=== PATIENT | male | born 1940 | race Caucasian/White ===

== ENCOUNTER 2020-02-11 09:53 | Emergency (ER) | payer MEDICARE ==
[2020-02-11] MEDS ORDERED: Sodium Chloride 0.9% 10 ML Syringe FLUSH PRN (10:04)
--- NOTE | 2020-02-11 10:27 | CT ---
[id number] CT/CT Head Stroke Protocol EXAM: CT Head Stroke Protocol CLINICAL DATA: STROKE CODE. COMPARISON STUDY: None FINDINGS: No intracranial hemorrhage, extra-axial fluid collection, mass, or acute ischemia. Area of encephalomalacia within the left temporal lobe consistent with old infarct. 4 Generalized parenchymal atrophy with scattered areas of nonspecific white matter disease, commonly seen as sequela of chronic microvascular ischemia. Soft tissues are unremarkable. Paranasal sinuses and mastoid air cells are clear. IMPRESSION: No acute intracranial findings. Shar Leong DO 02/11/20 1026 Thank you for allowing us to participate in the care of your patient.
--- NOTE | 2020-02-11 10:38 | EDM.PDOC ---
ED HPI GENERAL MEDICAL PROBLEM - General Stated Complaint: ER Time Seen by Provider: 02/11/20 09:55 Source of Information: Reports: Patient History Limitations: Reports: No Limitations - History of Present Illness INITIAL COMMENTS - FREE TEXT/NARRATIVE: Patient comes emergency department today with concerns of possibly having a stroke. Since Saturday this week the patient has had a difficulty r emembering things. Today he was getting ready to go to a and when he was talking with his friends he was having a very hard time even remembering where he was from or where he lives. His friends were concerned about him having a stroke so they told him to come to the emergency department. He did have a stroke about 8 years ago where he has no real residual neurological deficits. He is here without any complaints other than the difficulty with finding words for specific questions. He has had no head injury falls or trauma. He has no headache fever or chills. No visual disturbances or visual acuity changes. No diplopia. No head neck or back pain. No chest pain no shortness of breath or difficulty breathing. No weakness dizziness lightheadedness. No paresthesias. No syncope. He denies any change in the functionality of his upper or lower extremities. He denies any change in the sensation to his upper or lower extremities. No abdominal pain nausea or vomiting. No hematuria dysuria or urinary frequency. No COVID exposure no covert symptoms. He is unsure of what medications he takes from the past he states that he takes 3 of them but he cannot recall what they are and he took them last this morning. He is unsure if he is on aspirin or Plavix. - Related Data Allergies Allergy/AdvReac Type Severity Reaction Status Date / Time No Known Allergies Allergy Verified 02/11/20 11:43 ED ROS GENERAL - Review of Systems Review Of Systems: Comprehensive ROS is negative, except as noted in HPI. ED EXAM, NEURO - Physical Exam Exam: See Below Exam Limited By: No Limitations General Appearance: Alert, WD/WN, No Apparent Distress Eye Exam: Bilateral Eye: EOMI, PERRL Ears: Normal External Exam, Hearing Grossly Normal, Normal TMs Nose: Normal Inspection, Normal Mucosa, No Blood Throat/Mouth: Normal Inspection, Normal Lips, Normal Teeth, Normal Gums, Normal Voice, No Airway Compromise Head Exam: Atraumatic, Normocephalic Neck: Normal Inspection, Supple, Non-Tender, Full Range of Motion Respiratory/Chest: No Respiratory Distress, Lungs Clear, Normal Breath Sounds, No Accessory Muscle Use, Chest Non-Tender Cardiovascular: Normal Peripheral Pulses, Regular Rate, Rhythm GI/Abdominal: Normal Bowel Sounds, Soft, Non-Tender (Male) Exam: Deferred Rectal (Males) Exam: Deferred Neurological: Alert, Normal Mood/Affect, Normal Dorsiflexion, Normal Plantar Flexion, Normal Gait, Normal Reflexes, No Motor/Sensory Deficits, Oriented x 3. No: CN II-XII Intact (All intact appropriately other than a very subtle right sided facial droop to the corner of the mouth. ) Back Exam: Normal Inspection, Full Range of Motion Extremities: Normal Inspection, Normal Range of Motion, Non-Tender, No Pedal Edema, Normal Capillary Refill Psychiatric: Normal Affect, Normal Mood Skin Exam: Warm, Dry, Intact, Normal Color, No Rash EKG INTERPRETATION EKG Date: 02/11/20 Time: 10:19 Rhythm: NSR Rate (Beats/Min): 56 [place]: Normal P-Wave: Present QRS: Normal ST-T: Normal QT: Normal Comparison: NA - No Prior EKG Course - Orders/Labs/Meds Orders: Active Orders 24 hr Category Date Time Status Peripheral IV Insertion Adult [OM.PC] Stat Oth 02/11/20 10:04 Ordered Labs: Laboratory Tests 02/11/20 02/11/20 02/11/20 Range/Units 10:12 10:21 10:21 WBC 5.0 (4.0-10.0) x10^3/uL RBC 4.37 L (4.5-6.0) x10^6/uL Hgb 14.3 (14.0-18.0) g/dL Hct 40.3 (40.0-52.0) % MCV 92.2 (78.0-93.0) fL MCH 32.7 H (26.0-32.0) pg MCHC 35.5 (32.0-36.0) g/dL RDW Coeff of Zen 12.8 (10.0-15.0) % Plt Count 132 (130-400) x10^3/uL Neut % (Auto) 56.1 (50.0-80.0) % Lymph % (Auto) 31.3 (25.0-50.0) % [place] % (Auto) 8.4 (2.0-11.0) % Eos % (Auto) 3.8 (0.0-4.0) % Baso % (Auto) 0.4 (0.2-1.2) % PT 10.9 (9.5-12.3) SEC INR 1.0 L (2.0-3.5) APTT 25.3 L (25.6-32.8) SEC Sodium (136-145) mmol/L Potassium (3.5-5.1) mmol/L Chloride (98-107) mmol/L Carbon Dioxide (21-32) mmol/L Anion Gap (10-20) mmol/L BUN (7-18) mg/dL Creatinine (0.70-1.30) mg/dL Est Cr Clr Drug Dosing Estimated GFR (MDRD) Glucose (74-106) mg/dL POC Glucose 121 H (74-106) mg/dL Calcium (8.5-10.1) mg/dL Corrected Calcium (8.5-10.1) mg/dL Total Bilirubin (0.2-1.0) mg/dL AST (15-37) U/L ALT (16-63) U/L Alkaline Phosphatase (46-116) U/L POC Troponin I (0.00-0.08) ng/mL Total Protein (6.4-8.2) g/dL Albumin (3.4-5.0) g/dL Globulin Albumin/Globulin Ratio Ethyl Alcohol (0-3) mg/dL 02/11/20 02/11/20 Range/Units 10:21 10:23 WBC (4.0-10.0) x10^3/uL RBC (4.5-6.0) x10^6/uL Hgb (14.0-18.0) g/dL Hct (40.0-52.0) % MCV (78.0-93.0) fL MCH (26.0-32.0) pg MCHC (32.0-36.0) g/dL RDW Coeff of Zen (10.0-15.0) % Plt Count (130-400) x10^3/uL Neut % (Auto) (50.0-80.0) % Lymph % (Auto) (25.0-50.0) % [place] % (Auto) (2.0-11.0) % Eos % (Auto) (0.0-4.0) % Baso % (Auto) (0.2-1.2) % PT (9.5-12.3) SEC INR (2.0-3.5) APTT (25.6-32.8) SEC Sodium 145 (136-145) mmol/L Potassium 3.8 (3.5-5.1) mmol/L Chloride 107 (98-107) mmol/L Carbon Dioxide 29 (21-32) mmol/L Anion Gap 12.8 (10-20) mmol/L BUN 13 (7-18) mg/dL Creatinine 0.8 (0.70-1.30) mg/dL Est Cr Clr Drug Dosing TNP Estimated GFR (MDRD) > 60 Glucose 110 H (74-106) mg/dL POC Glucose (74-106) mg/dL Calcium 8.7 (8.5-10.1) mg/dL Corrected Calcium 9.18 (8.5-10.1) mg/dL Total Bilirubin 1.2 H (0.2-1.0) mg/dL AST 22 (15-37) U/L ALT 34 (16-63) U/L Alkaline Phosphatase 57 (46-116) U/L POC Troponin I 0.00 (0.00-0.08) ng/mL Total Protein 6.4 (6.4-8.2) g/dL Albumin 3.4 (3.4-5.0) g/dL Globulin 3.0 Albumin/Globulin Ratio 1.13 Ethyl Alcohol < 3 (0-3) mg/dL Meds: Medications Discontinued Medications Generic Name Dose Route Start Last Admin Trade Name Freq PRN Reason Stop Dose Admin Sodium Chloride 10 ml 02/11/20 10:04 Saline Flush FLUSH ASDIRECTED PRN Keep Vein Open - Radiology Interpretation Free Text/Narrative:: 10:[address] with the CT head report. No acute intracranial findings. Area of encephalomalacia within the left temporal lobe consistent with old infarct. Generalized parenchymal atrophy sequela of chronic microvascular ischemia. - Re-Assessments/Exams Free Text/Narrative Re-Assessment/Exam: 02/11/20 Stroke code was called shortly after the patient's arrival and the stroke team was available shortly after. Immediately to the CT scan which shows no acute findings and some old parenchymal changes. NIH stroke scale is 2. 1 for the right-sided facial droop and 1 for the difficulty with finding words. He was unable to identify what a cactus was. I explained to the patient that I have concerns that he had some type of focal ischemic stroke causing his difficulty with word finding. I was going to contact the stroke center at [facility] in [place] although the patient adamantly refuses and wants to leave the emergency department. He states that he came here from his home town that he cannot remember what it is to go to a and he is going. Blood pressure is appropriate at 140/76. I called and spoke with Dr. Marie the neurologist healthcare management consultant at [facility]. He had the CT for review during our discussion. HPI ER course findings and concerns were relayed to the neurologist healthcare management consultant. His recommendation was transfer to the stroke center for stroke evaluation at this time. I explained that the patient is refusing transfer at this time as he feels that it is more important for him to go to this . The neurologist guidance then at that time was to complete a CTA head and neck to ensure that he does not have any large vessel narrowing concerning for an acute stroke in the near future and that the patient should have someone drive him to the emergency department at [facility] in [place] following the . Return to the room and discussed with the patient my concerns as well as the neurologist concerns from [place] and that our medical advice at this time would be to transfer to the stroke center in [place] for further work-up and evaluation. The patient refuses transfer at this time. I then gave him the second option of a CTA head and neck to ensure that he has no large vessel narrowing con cerning for a large debilitating stroke in the very near future. He yet again denies this and wants to leave AGAINST MEDICAL ADVICE. It was clearly explained to him the risk of life altering debilitating stroke to include . He is understanding of this he is alert and oriented x3 and appropriate there is no confusion. Patient signed the AMA form and left on his own. Departure - Departure Time of Disposition: 11:50 Disposition: Against Medical Advice 07 Clinical Impression: CVA (cerebral vascular accident) Qualifiers: CVA mechanism: unspecified Qualified Code(s): I63.9 - Cerebral infarction, unspecified - Discharge Information Referrals: PCP,None [Primary Care Provider] - - My Orders Last 24 Hours: My Active Orders 02/11/20 10:04 Peripheral IV Insertion Adult [OM.PC] Stat - Assessment/Plan Last 24 Hours: My Active Orders 02/11/20 10:04 Peripheral IV Insertion Adult [OM.PC] Stat
[2020-02-11 10:45] LABS: PTT,PARTIAL THROMBOPLSTIN TIME 25.3 SEC (25.6-32.8)
[2020-02-11 10:47] LABS: ANION GAP 12.8 mmol/L (10-20); CHLORIDE,CL 107 mmol/L (98-107); SODIUM,NA 145 mmol/L (136-145)
== END 2020-02-11 11:55 | disposition left against medical advice (07) ==
LOC: VM.ED 09:53
DX: I63.9 Cerebral infarction, unspecified (principal)
CPT/HCPCS: 36415; 70450; 80053; 80307; 82962; 84484; 85025; 85610; 85730; 93005; 93010; 99284; 99285-25